=== PATIENT | female | born 1940 | race Caucasian/White ===

== ENCOUNTER 2016-05-21 15:35 | Inpatient (IN) | payer MEDICARE, BC ==
--- NOTE | ~2016-05-21 | HP ---
History And Physical [place] [address] [place]. [address] NAME: GISELE JAVIER : 38 STATUS : ADM IN [facility]#: [id number] AGE: 75 ADM/REG DATE : 05/21/16 MR#: [id number] REPORT SERV DATE: 05/22/16 DICTATED BY: MARGARITA SALMON DATE: 05/21/16 REPORT STATUS : Draft TRANSCRIBED BY: MODL DATE: 05/21/16 DATE OF ADMISSION: 05/21/2016 CHIEF COMPLAINT: Left knee wound. HISTORY OF PRESENT ILLNESS: This pleasant 75-year-old female underwent a left total knee arthroplasty with ORIF of the tibial plateau for a left tibial plateau fracture back on 04/09/2016. At that time, it was noted she had severe DJD as well and so a revision stem tibial component was utilized to manage the fracture as well as her osteoarthritis and gave her a weightbearing joint. In the past couple of weeks, since the time of surgery, she is noted to have increasing discoloration and necrosis of a, at this point, 2 x 2 cm area centered over the distal joint line, the distal aspect of the patellar tendon where it overlies the tibial tubercle. This had been managed with wound care over the past several visits with home health wound care; however, it is not improving. She subsequently called my office and we brought her in to the office to evaluate. In the office, it was noted that she did have this area of wound necrosis and out of concern for periprosthetic infection, I brought her to the operating room for evaluation and management of wound necrosis. Of note, she states this is the exact spot that she fell on to cause the tibial plateau fracture in the first place. I do not recall at the time of surgery there being specific necrotic tissue, but this has developed over the last couple of weeks. PAST MEDICAL HISTORY: Includes coronary artery disease with prior PCI; chronic angina; atrial fibrillation, on Coumadin; hypertension; hyperlipidemia; peripheral vascular disease; abdominal hysterectomy; and right carotid endarterectomy. ALLERGIES: TO SULFA. HOME MEDICATIONS: Include amiodarone, Caltrate, carvedilol, Imdur, nitro, Protonix, simvastatin, tramadol, [place], and Coumadin. PAST SURGICAL HISTORY: As above. SOCIAL HISTORY: No alcohol or tobacco. She does ambulate at home and has very supportive children. FAMILY HISTORY: Significant for longevity. REVIEW OF SYSTEMS: No headache, chest pain, nausea, vomiting, shortness of breath, or other constitutional symptoms for full 14-point systematic review. No fever, no chills. No warmth, erythema, or drainage at the site. PHYSICAL EXAMINATION: GENERAL: I see a lady, who looks stated age. A and O x3. Pleasant, cooperative with exam. Generally in no apparent distress. SKIN: Clean, dry, and intact with the exception of this wound. There is no warmth or History And Physical [address] [address] NAME: GISELE JAVIER : 38 STATUS : ADM IN [facility]#: [id number] AGE: 75 ADM/REG DATE : 05/21/16 MR#: [id number] REPORT SERV DATE: 05/22/16 DICTATED BY: MARGARITA SALMON DATE: 05/21/16 REPORT STATUS : Draft TRANSCRIBED BY: GERRY DATE: 05/21/16 erythema surrounding it. There is no drainage. There is no foul smell. HEENT: Pupils equally round and reactive to light and accommodation. Extraocular muscles intact. CHEST: Clear to auscultation bilaterally. HEART: Regular rate and rhythm. ABDOMEN: Soft, nontender, nondistended. Bowel sounds are present. EXTREMITIES: As above. She also has no effusion to speak of at this joint and she has good range of motion coming from 10 to 100 degrees easily. ASSESSMENT: A 75-year-old with wound necrosis overlying a total joint arthroplasty. PLAN: Plan will be for operative debridement, irrigation to bone, ensure that this is an extraarticular issue and should it be an intraarticular issue, plan for formal debridement, irrigation, and poly exchange. She verbalized understanding of these risks and wished to proceed to the operating room. JG/GERRY Margarita Salmon M.D. / [id number] CC: Margarita Salmon M.D.
--- NOTE | ~2016-05-21 | OP ---
Record Of Operation [facility] [address] [place]. [address] NAME: GISELE JAVIER : 38 STATUS : ADM IN [facility]#: [id number] AGE: 75 ADM/REG DATE : 05/21/16 MR#: [id number] REPORT SERV DATE: 05/22/16 DICTATED BY: MARGARITA SALMON DATE: 05/21/16 REPORT STATUS : Draft TRANSCRIBED BY: MODL DATE: 05/21/16 DATE OF PROCEDURE: 05/21/2016 PREOPERATIVE DIAGNOSIS: Wound necrosis, left knee. POSTOPERATIVE DIAGNOSIS: Wound necrosis, left knee, and in addition, open joint. PROCEDURE: Debridement and irrigation to bone down to the level of the joint, poly exchange and primary closure of 2 x 2 cm wound. Placement of negative pressure dressing. BLOOD LOSS: 100 mL. COMPLICATIONS: None. SPECIMENS: None. TOURNIQUET TIME: 0. ANESTHESIA: General. FINDINGS: Open joint. No signs of infection. Specimens cultures were sent both intra- articular aspiration and then as well once it was opened from behind the tibial component in the notch. CONDITION UPON LEAVING THE OR: Stable to recovery room with good distal pulses. INDICATIONS FOR PROCEDURE: Briefly, this is a pleasant 75-year-old woman who suffered a same level fall a couple of weeks ago. She was managed with total knee arthroplasty and ORIF of her left tibial plateau fracture. She had been doing well from this, but over the past week to 10 days, had began having some wound necrosis, some dry skin, very minimal drainage, no foul smell. We brought her into the office and she presented. The wound consistent as above decided for formal intraoperative evaluation and management, wound VAC versus primary closure. She was given the risks and benefits, including, but not limited to , myocardial infarction, pulmonary embolism, stroke, deep venous thrombosis, damage to nerves, damage to vessels, damage to other soft tissues, painful scar, unsightly scar, hardware breakage, periprosthetic fracture, periprosthetic infection, possible need for further surgery that could include further arthroplasty, arthrodesis, amputation. She verbalized understanding of these risks and wished to proceed to the operating room. PROCEDURE IN DETAIL: After the patient was identified in the perioperative holding area, correct side and site identified and marked by me. She was taken to the operative suite where she was placed under general anesthesia, supine on the regular OR table. She was prepped and draped in sterile fashion. Correct time-out and antibiotics were administered. I then began with a suprapatellar intra-articular aspiration. Approximately 10 mL of clear yellow fluid was extracted. This was sent off for Gram stain, cell counts, anaerobic, aerobic, AFB, and fungal. Several cultures were taken from this. I then filled the joint Record Of [address] [place]. [address] NAME: GISELE JAVEIR : 38 STATUS : ADM IN PAT#: [id number] AGE: 75 ADM/REG DATE : 05/21/16 MR#: [id number] REPORT SERV DATE: 05/22/16 DICTATED BY: MARGARITA SALMON DATE: 05/21/16 REPORT STATUS : Draft TRANSCRIBED BY: GERRY DATE: 05/21/16 with approximately 90 mL of methylene blue and saline and waited and after about 5 seconds, methylene blue began draining from her very distal wound over the tibial tubercle. I therefore felt that this wound represented an intra-articular opening in threat for infection. I therefore first debrided the necrotic tissue noting full-thickness skin necrosis and an area approximately 2 x 2 cm centered on the distal joint line over the patellar tendon and the patellar tendon insertion. With that, I debrided these skin edges back to clean bleeding skin. I then opened her skin incision both proximally and distally to allow for elevation of medial and lateral skin flaps, which allowed for medial parapatellar arthrotomy. With the medial parapatellar arthrotomy done, I again cultured inside the joint noting no gross signs of infection. I then irrigated with 6 L of Irrigant with the poly intact. I then dislodged the poly and irrigated the posterior capsule with another 3 L of Irrigant. I followed that with an Aricept and once that was accomplished, I placed my new poly. With that accomplished, I closed the medial parapatellar arthrotomy with #2 Quill in a running and oversewn fashion followed by 2-0 PDS in the skin where subcu stitches could be accomplished. Those were performed followed by benito and where the wound necrosis was, I used a ihmi-bjr-ygv-near type sandrita stitch after the wound edges had been completely debrided as well as freed from the underlying soft tissues. The wound came together nicely without excessive tension at the wound site secondary to my undermining of the medial lateral skin flaps. With that, a venita negative pressure dressing was placed. She was placed in a bulky dressing and a knee immobilizer to continue to guard again skin tension in flexion. She will be weight bear as tolerated in the knee immobilizer. We will get Infectious Disease on board to see if any long-term antibiotic recommendations are necessary and continue to monitor her wound. JG/GERRY Margarita Salmon M.D. / [id number] CC: Margarita Salmon M.D.
--- NOTE | ~2016-05-21 | CN ---
Consultation Report [facility] [address] [place]. [address] NAME: GISELE JAVIER : 38 STATUS : ADM IN [facility]#: [id number] AGE: 75 ADM/REG DATE : 05/21/16 MR#: [id number] REPORT SERV DATE: 05/22/16 DICTATED BY: KAMRAN FALK DATE: 05/22/16 REPORT STATUS : Draft TRANSCRIBED BY: MODL DATE: 05/22/16 INFECTIOUS DISEASE CONSULT DATE OF CONSULTATION: REASON FOR CONSULT: Right prosthetic knee infection. HISTORY OF PRESENT ILLNESS: A 75 years old white lady with coronary artery disease, hypertension, paroxysmal atrial fibrillation, peripheral vascular disease, who fell at the end of March and suffered a left tibial plateau fracture and anterior tibial split fracture. Dr. Ritesh Hill did a left knee replacement and anterior tibial split repair with placement of bone fragments. The patient had some encephalopathy postop. She was discharged to [facility] on the 12 of April. She was readmitted for nonhealing surgical site wound. The patient states that she had a persistent wound at the anterior knees that eventually formed some yellow material very adherent and had some yellowish drainage but not purulent. There is no surrounding cellulitis. No fever. No body aches. No nausea, no shortness of breath. No urinary symptoms. She was felt to have failed outpatient treatment so, she was admitted yesterday. Dr. Hill described an area of necrosis at the tibial tubercle area about 2 x 2 cm without redness or drainage. The knee had good range of motion. The patient was able to function, able to do physical therapy. In the operating room, he found that there was a communication between this wound and the knee joint. He sent cultures from the joint. On aspiration, this was clear yellow fluid and the cell count was 2800 white blood cells, 5000 red blood cells, 82% segments. He exchanged liners of the joint and gave the patient some Ancef. ID consult was requested. She got some vancomycin postop. LABORATORY DATA: Lab work today shows a creatinine of 0.7, WBC 4.7, hemoglobin 10, and platelets 180. PAST MEDICAL HISTORY: As I mentioned above plus she has history of CVA and hysterectomy. ALLERGIES: SULFA CAUSED A RASH. MEDICATIONS ON ADMISSION: Amiodarone, carvedilol, Imdur, Protonix, Zocor, and Coumadin. SOCIAL HISTORY: She is retired, does not smoke. She has a pet dog but that did not affect her knee. FAMILY HISTORY: Lung cancer and heart disease. PHYSICAL EXAMINATION: GENERAL: On exam, she is alert, not in distress. HEENT: With an upper denture. Consultation Report [place] [id number] [place] [address] NAME: GISELE JAVIER : 38 STATUS : ADM IN [facility]#: [id number] AGE: 75 ADM/REG DATE : 05/21/16 MR#: [id number] REPORT SERV DATE: 05/22/16 DICTATED BY: KAMRAN FALK DATE: 05/22/16 REPORT STATUS : Draft TRANSCRIBED BY: GERRY DATE: 05/22/16 LUNGS: Clear to auscultation. No wheezes, rhonchi, or rales. HEART: Regular rhythm with a soft murmur in all auscultation areas. ABDOMEN: Not tender. EXTREMITIES: Left knee is with surgical dressing. Left lower leg with some edema and right foot with no obvious lesion. ASSESSMENT AND PLAN: 1. 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 She has had a nonhealing left anterior knee wound. 2. History of coronary artery disease, hypertension, and atrial fibrillation. At this time, we will follow up the operative cultures. The Gram stain showed no organisms although there are white blood cells. Empiric antibiotics with vancomycin and cefepime, pending cultures. I discussed with the patient and explained the treatment for prosthetic joint infection. She will likely need a long course, about 6 weeks of IV antibiotics, and perhaps continue with oral antibiotics after that for suppression. She had the opportunity to ask questions. NICK/GERRY Kamran Falk M.D. / [id number] CC: Anali Sam M.D.
--- NOTE | ~2016-05-21 | DS ---
Discharge Summary [address] [place]. [address] NAME: GISELE JAVIER : 38 STATUS : DIS IN PAT#: [id number] AGE: 75 ADM/REG DATE : 05/21/16 MR#: [id number] REPORT SERV DATE: 06/01/16 DICTATED BY: MARGARITA SALMON DATE: 06/01/16 REPORT STATUS : Draft TRANSCRIBED BY: GERRY DATE: 06/01/16 Data Collection from hospitalization DISCHARGE DIAGNOSES: 1. Wound necrosis, left knee and in addition, open joint. 2. Hypertension. 3. Coronary artery disease. 4. Chronic angina. 5. Atrial fibrillation. 6. Hyperlipidemia. 7. Peripheral vascular disease. CONSULTATIONS: Dr. Kamran Melissa. Adrian Watkins APN PROCEDURES: Debridement and irrigation to bone down to the level of the joint, poly exchange and primary closure of 2 x 2 cm wound, placement of negative pressure dressing, 05/21/2016. PATHOLOGY: Bone, soft tissue, and surgical hardware, left knee. Arthroplasty-bone and soft tissue with evidence of surgical repair. Surgical hardware (see gross description). No infection or neoplasm. DISCHARGE MEDICATIONS: Cordarone 100 mg at bedtime, Coreg 6.25 mg twice a day, Maxipime 1 g IV every 12 hours, Colace 100 mg twice a day, ferrous sulfate 300 mg with breakfast and supper, Imdur 60 mg daily, Nitrostat 0.4 mg sublingually as needed, Protonix 40 mg daily, Zocor 20 mg at bedtime, vancomycin 750 mg IV every 12 hours, Jantoven 1 mg on Saturday-SaturdayYullcpjgt-Lkgqbzyu-Wybeedkh and 0.5 mg on Mondays and Fridays. CONDITION ON DISCHARGE: Stable. DISPOSITION: The patient was discharged home to be followed by home health care on a regular diet with Ensure as instructed and activities as instructed. She would follow up with me one week following discharge. [facility], 05/28/2016. HOSPITAL COURSE: This is a 75-year-old female, who had undergone a left total knee open reduction and internal fixation of the left tibial plateau fracture on 04/09/2016, severe degenerative joint disease as well and a revision stem tibial component was utilized to manage the fracture as well as her osteoarthritis and gave her a weight bearing joint. Over the past couple of week since the time of surgery, she was found to have increasing discoloration and necrosis-at this point, 2 x 2 cm area centered over the distal joint line, the distal aspect of the patellar tendon where it overlies the tibial tubercle. This had been managed with wound care over the past several visits with home health wound care. However, it was not improving. She subsequently called my office and she came to the office for evaluation. In the office, it was noted that she did have this area of wound necrosis in out of concern for periprosthetic infection. It was felt that she would need to undergo surgical intervention. The patient says this is the exact spot that she fell on, which caused the tibial plateau fracture in the first place. I did not recall at the time of surgery there being any specific necrotic tissue, but this had developed over the last couple of weeks. She was admitted to the hospital at this time for further evaluation and Discharge Summary [address] [place]. [address] NAME: GISELE JAVIER : 38 STATUS : DIS IN PAT#: [id number] AGE: 75 ADM/REG DATE : 05/21/16 MR#: [id number] REPORT SERV DATE: 06/01/16 DICTATED BY: MARGARITA SALMON DATE: 06/01/16 REPORT STATUS : Draft TRANSCRIBED BY: GERRY DATE: 06/01/16 treatment. Upon admission, she was taken to the operating room, where she underwent the above-mentioned procedure. She tolerated this well and there were no complications. She was seen in consultation by Adrian Watkins. The patient was eating okay and doing okay. Wound culture was negative thus far. Coumadin was on hold. The dose was going to be decreased. On postop day 1, knee cultures were pending. The left knee was wrapped in an immobilizer. The patient had received a dose of IV vancomycin. INR level was 2.4. Blood pressure control was okay. Wound VAC remained in place. She was evaluated by Occupational and Physical Therapy. She was seen by Dr. Kamran Melissa regarding right prosthetic knee infection. In the operating room, it was found that there was a communication between this wound and the knee joint. Cultures had been sent from the joint. On aspiration, this was clear yellow fluid and the cell count was 2800 white blood cells, 5000 red blood cells, 82% segments. He exchanged liners of the joint and gave the patient some Ancef. The patient had also received some vancomycin postoperatively. At this time, we would follow up with the operative cultures. Gram stain showed no organisms, although there were white blood cells. Empiric antibiotics with vancomycin and cefepime would be continued pending cultures. It was felt that the patient would likely need a long course of about six weeks of IV antibiotics and then perhaps continue with oral antibiotics after that for suppression. On 05/23/2016, she remained afebrile. Homans' sign was negative. She had good pain control. Unfortunately, all the cultures were negative thus far. Over the next couple of days, discharge planning was performed. The cultures of the knee remained negative. We would plan empiric vancomycin plus cefepime. She was eating well. She would still need long-term antibiotic treatment. INR level was 3.0. On 05/25/2016, she was felt stable for discharge. IV antibiotics were continued. A PICC line had been inserted. Discharge instructions were given. Due to her improved and stable condition, she was discharged home to be followed by home health care with the above-stated instructions. Information collected by: Mikayla Tay I submit the above information as my discharge summary. KARLA/GERRY Margarita Salmon M.D. / [id number] CC: Anali Sam M.D. Paul Cornea, M.D.
[~2016-05-21 15:35] MED LIST: ALTA2.5 PO; ASA5GR PO; ASAB PO; ATEN25 PO; CALTRAT600 PO; COQ10100 MG OR; CORDARONE PO; COREG3 PO; COREG6 PO; COZ25 PO; CYANO1000T PO; HYDRO/APAP PO; IMDUR60 PO; JANTOVEN1 MG PO; KEPPRA500 PO; MAXIMUM D3 PO; NIACIN 500 PO; NITROSTAT0.4 MG SL; NORCO1 TA1 PO; PLAVIX PO; PRAVACHOL40 MG PO; PROTONIX PO; REQUIP1 PO; ULTRAM50 PO; VITAMIN B-121000 MC1 SL; VITAMIN D1000 UNI1 PO; VITAMIN D31000 UNIT PO; ZOCOR20 PO
[2016-05-21 16:32] LABS: BASOPHILS 0.6 %; BASOPHILS ABSOLUTE 0.03 10/3/uL (0.0-0.16); EOSINOPHILS 1.4 %; EOSINOPHILS ABSOLUTE 0.07 10/3/uL (0.0-0.53); HEMATOCRIT 36.8 % (36.0-48.0); HEMOGLOBIN 11.8 g/dL (12.0-16.0); LYMPHOCYTES 37.2 %; LYMPHOCYTES ABSOLUTE 1.89 10/3/uL (0.67-4.30); MANUAL DIFF NO %; MEAN CORPUS HGB CONC 32.1 g/dL (32.0-36.0); MEAN CORPUSCULAR HEMOGLOB 29.4 pg (26.0-34.0); MEAN CORPUSCULAR VOLUME 91.5 fL (80-100); MEAN PLATELET VOLUME 9.1 fL (9.2-13.0); MONOCYTES 9.6 %; MONOCYTES ABSOLUTE 0.49 10/3/uL (0.21-1.20); NEUTROPHILS 51.2 %; PLATELET COUNT 221 10/3/uL (150-400); RBC DISTRIBUTION WIDTH 15.2 % (12.0-16.0); RED CELL COUNT 4.02 10/6/uL (4.0-5.6); WHITE BLOOD CELLS 5.1 10/3/uL (4.5-10.5)
[2016-05-21 16:36] LABS: INTERNATIONAL NORMAL RATI 2.4 UNITS (-); PROTIME (NOT ORD) 26.3 SEC (12.0-14.5)
[2016-05-21 16:44] LABS: BUN (BLOOD UREA NITROGEN) 10 MG/DL (6-23); CALCIUM, SERUM 9.2 MG/DL (8.5-10.4); CHLORIDE, SERUM 104 MMOL/L (96-112); CO2 (CARBON DIOXIDE) 31 MMOL/L (24-34); CREATININE 0.77 MG/DL (0.55-1.02); GFR AFRICAN AMERICAN 86 ML/MIN (>=60); GFR NON AFRICAN AMERICAN 74 ML/MIN (>=60); GLUCOSE, SERUM 94 MG/DL (60-99); SODIUM, SERUM 142 MMOL/L (135-148)
[2016-05-21 22:02] LABS: BD FL LYMPH (NOT ORD) 6 %; BD FL SOURCE (NOT ORD) JOINT; BF BASO (NOT OF) 0 %; BF LARGE MONONUCLEAR 12 %; BF TOTAL CELL CT (NOT ORD 2879 /MM3; BODY FLUID EOS (NOT ORD) 0 %; BODY FLUID RBC (NOT ORD) 5000 /MM3; BODY FLUID SEG (NOT ORD) 82 %
[2016-05-22 04:25] LABS: BASOPHILS 0.2 %; BASOPHILS ABSOLUTE 0.01 10/3/uL (0.0-0.16); EOSINOPHILS 0 %; IMMATURE GRANULOCYTES 0.2 %; IMMATURE GRANULOCYTES ABSOLUTE 0.01 10/3/uL (0.0-0.11); LYMPHOCYTES 15.3 %; LYMPHOCYTES ABSOLUTE 0.71 10/3/uL (0.67-4.30); MEAN CORPUS HGB CONC 32.3 g/dL (32.0-36.0); MEAN CORPUSCULAR HEMOGLOB 29.8 pg (26.0-34.0); MEAN CORPUSCULAR VOLUME 92.3 fL (80-100); MEAN PLATELET VOLUME 9.1 fL (9.2-13.0); MONOCYTES 1.5 %; MONOCYTES ABSOLUTE 0.07 10/3/uL (0.21-1.20); NEUTROPHILS 82.8 %; NEUTROPHILS ABSOLUTE 3.85 10/3/uL (2.02-8.40); PLATELET COUNT 180 10/3/uL (150-400); RBC DISTRIBUTION WIDTH 15.1 % (12.0-16.0); RED CELL COUNT 3.36 10/6/uL (4.0-5.6); WHITE BLOOD CELLS 4.7 10/3/uL (4.5-10.5)
[2016-05-22 04:27] LABS: MANUAL DIFF NO %
[2016-05-22 04:30] LABS: INTERNATIONAL NORMAL RATI 2.4 UNITS (-); PROTIME (NOT ORD) 25.9 SEC (12.0-14.5)
[2016-05-22 04:40] LABS: BUN (BLOOD UREA NITROGEN) 10 MG/DL (6-23); CALCIUM, SERUM 8.6 MG/DL (8.5-10.4); CHLORIDE, SERUM 106 MMOL/L (96-112); CO2 (CARBON DIOXIDE) 27 MMOL/L (24-34); CREATININE 0.72 MG/DL (0.55-1.02); GFR AFRICAN AMERICAN 94 ML/MIN (>=60); GFR NON AFRICAN AMERICAN 81 ML/MIN (>=60); GLUCOSE, SERUM 125 MG/DL (60-99); POTASSIUM, SERUM 4.6 MMOL/L (3.5-5.3); SODIUM, SERUM 143 MMOL/L (135-148)
[2016-05-23 04:58] LABS: BASOPHILS 0.3 %; BASOPHILS ABSOLUTE 0.02 10/3/uL (0.0-0.16); EOSINOPHILS 0.7 %; EOSINOPHILS ABSOLUTE 0.04 10/3/uL (0.0-0.53); HEMOGLOBIN 8.6 g/dL (12.0-16.0); IMMATURE GRANULOCYTES 0.2 %; IMMATURE GRANULOCYTES ABSOLUTE 0.01 10/3/uL (0.0-0.11); LYMPHOCYTES 41.3 %; LYMPHOCYTES ABSOLUTE 2.37 10/3/uL (0.67-4.30); MEAN CORPUS HGB CONC 31.3 g/dL (32.0-36.0); MEAN CORPUSCULAR HEMOGLOB 29.2 pg (26.0-34.0); MEAN CORPUSCULAR VOLUME 93.2 fL (80-100); MONOCYTES 10.5 %; PLATELET COUNT 171 10/3/uL (150-400); RBC DISTRIBUTION WIDTH 15.6 % (12.0-16.0); RED CELL COUNT 2.95 10/6/uL (4.0-5.6); WHITE BLOOD CELLS 5.7 10/3/uL (4.5-10.5)
[2016-05-23 04:59] LABS: HEMATOCRIT 27.5 % (36.0-48.0); MANUAL DIFF NO %
[2016-05-23 05:03] LABS: INTERNATIONAL NORMAL RATI 3.2 UNITS (-); PROTIME (NOT ORD) 32.1 SEC (12.0-14.5)
[2016-05-23 05:14] LABS: BUN (BLOOD UREA NITROGEN) 7 MG/DL (6-23); CALCIUM, SERUM 8.3 MG/DL (8.5-10.4); CHLORIDE, SERUM 110 MMOL/L (96-112); CO2 (CARBON DIOXIDE) 28 MMOL/L (24-34); CREATININE 0.64 MG/DL (0.55-1.02); GFR AFRICAN AMERICAN 100 ML/MIN (>=60); GFR NON AFRICAN AMERICAN 86 ML/MIN (>=60); POTASSIUM, SERUM 4.3 MMOL/L (3.5-5.3); SODIUM, SERUM 145 MMOL/L (135-148)
[2016-05-23 05:19] LABS: GLUCOSE, SERUM 86 MG/DL (60-99)
[2016-05-24 07:12] LABS: BASOPHILS 0.4 %; BASOPHILS ABSOLUTE 0.02 10/3/uL (0.0-0.16); EOSINOPHILS 2.7 %; EOSINOPHILS ABSOLUTE 0.15 10/3/uL (0.0-0.53); HEMATOCRIT 27.2 % (36.0-48.0); HEMOGLOBIN 8.7 g/dL (12.0-16.0); IMMATURE GRANULOCYTES 0.2 %; IMMATURE GRANULOCYTES ABSOLUTE 0.01 10/3/uL (0.0-0.11); LYMPHOCYTES 30.3 %; MANUAL DIFF NO %; MEAN CORPUSCULAR HEMOGLOB 29.3 pg (26.0-34.0); MEAN CORPUSCULAR VOLUME 91.6 fL (80-100); MEAN PLATELET VOLUME 9.2 fL (9.2-13.0); MONOCYTES 10.5 %; MONOCYTES ABSOLUTE 0.59 10/3/uL (0.21-1.20); NEUTROPHILS 55.9 %; NEUTROPHILS ABSOLUTE 3.14 10/3/uL (2.02-8.40); PLATELET COUNT 157 10/3/uL (150-400); RBC DISTRIBUTION WIDTH 15.5 % (12.0-16.0); RED CELL COUNT 2.97 10/6/uL (4.0-5.6); WHITE BLOOD CELLS 5.6 10/3/uL (4.5-10.5)
[2016-05-24 07:19] LABS: PROTIME (NOT ORD) 30.9 SEC (12.0-14.5)
[2016-05-24 07:25] LABS: BUN (BLOOD UREA NITROGEN) 7 MG/DL (6-23); CALCIUM, SERUM 8.2 MG/DL (8.5-10.4); CHLORIDE, SERUM 108 MMOL/L (96-112); CO2 (CARBON DIOXIDE) 29 MMOL/L (24-34); GFR AFRICAN AMERICAN 108 ML/MIN (>=60); GFR NON AFRICAN AMERICAN 93 ML/MIN (>=60); GLUCOSE, SERUM 90 MG/DL (60-99); SODIUM, SERUM 144 MMOL/L (135-148)
[2016-05-24 07:26] LABS: POTASSIUM, SERUM 3.2 MMOL/L (3.5-5.3)
[2016-05-25 05:58] LABS: BASOPHILS 0.8 %; BASOPHILS ABSOLUTE 0.04 10/3/uL (0.0-0.16); EOSINOPHILS 6.3 %; EOSINOPHILS ABSOLUTE 0.32 10/3/uL (0.0-0.53); LYMPHOCYTES ABSOLUTE 2.04 10/3/uL (0.67-4.30); MEAN CORPUSCULAR VOLUME 93.5 fL (80-100); MEAN PLATELET VOLUME 9.7 fL (9.2-13.0); MONOCYTES 10.8 %; MONOCYTES ABSOLUTE 0.55 10/3/uL (0.21-1.20); NEUTROPHILS 42.1 %; NEUTROPHILS ABSOLUTE 2.15 10/3/uL (2.02-8.40); PLATELET COUNT 174 10/3/uL (150-400); RBC DISTRIBUTION WIDTH 15.5 % (12.0-16.0); WHITE BLOOD CELLS 5.1 10/3/uL (4.5-10.5)
[2016-05-25 05:59] LABS: MANUAL DIFF NO %
[2016-05-25 06:02] LABS: PROTIME (NOT ORD) 22.1 SEC (12.0-14.5)
[2016-05-25 06:05] LABS: BUN (BLOOD UREA NITROGEN) 6 MG/DL (6-23); CALCIUM, SERUM 8.3 MG/DL (8.5-10.4); CHLORIDE, SERUM 105 MMOL/L (96-112); CO2 (CARBON DIOXIDE) 31 MMOL/L (24-34); CREATININE 0.59 MG/DL (0.55-1.02); GFR AFRICAN AMERICAN 102 ML/MIN (>=60); GFR NON AFRICAN AMERICAN 88 ML/MIN (>=60); GLUCOSE, SERUM 86 MG/DL (60-99); SODIUM, SERUM 143 MMOL/L (135-148)
[2016-05-25 06:08] LABS: POTASSIUM, SERUM 4.1 MMOL/L (3.5-5.3)
[2016-05-25] MEDS ORDERED: MAX1 IV (14:50)
[2016-05-25] MEDS ORDERED: DSS PO (14:51)
[2016-05-25] MEDS ORDERED: FESO4 PO (14:54)
[2016-05-25] MEDS ORDERED: VANCO500 IV (14:59)
== END 2016-05-25 18:32 | disposition home health service (06) | DRG 902 ==
LOC: SDC/OF 15:35 → 7NO 22:49
PROVIDERS: Nurse Practitioner Gerontology; Orthopaedic Surgery; Specialist
PROC: 0SUD09C Supplement Left Knee Joint with Liner, Patellar Surface, Open Approach (ICD-10-PCS; 2016-05-21)
PROC: 0S9D3ZX Drainage of Left Knee Joint, Percutaneous Approach, Diagnostic (ICD-10-PCS; 2016-05-21)
PROC: 0HBLXZZ Excision of Left Lower Leg Skin, External Approach (ICD-10-PCS; principal; 2016-05-21 17:15)
PROC: 0SPD09Z Removal of Liner from Left Knee Joint, Open Approach (ICD-10-PCS; 2016-05-21 17:15)
PROC: 02HV33Z Insertion of Infusion Device into Superior Vena Cava, Percutaneous Approach (ICD-10-PCS; 2016-05-25)
PROC: 4A02X4A Measurement of Cardiac Electrical Activity, Guidance, External Approach (ICD-10-PCS; 2016-05-25)
DX: T81.32XA Disruption of internal operation (surgical) wound, not elsewhere classified, initial encounter (principal); D62 Acute posthemorrhagic anemia; I48.0 Paroxysmal atrial fibrillation; I73.9 Peripheral vascular disease, unspecified; I25.119 Atherosclerotic heart disease of native coronary artery with unspecified angina pectoris; E78.5 Hyperlipidemia, unspecified; Z79.01 Long term (current) use of anticoagulants; Z90.710 Acquired absence of both cervix and uterus; Z88.2 Allergy status to sulfonamides; Z95.5 Presence of coronary angioplasty implant and graft; Z86.73 Personal history of transient ischemic attack (TIA), and cerebral infarction without residual deficits; Z96.652 Presence of left artificial knee joint
CPT/HCPCS: 36569; 80048; 80202; 85025; 85610; 87015; 87070; 87075; 87102; 87116; 87205; 88300; 89051; 93005; 97116-GP; 97161-GP; 97165-GO; A9270-GY; C1751; C1776; G8978-CJ-GP; G8979-CH-GP; G8987-CI-GO; G8988-CI-GO; G8989-CI-GO; J0690; J0692; J1885; J2270; J2370; J2405; J2710; J3010; J3370